=== PATIENT | female | born 1960 | race African-American/Black ===

== ENCOUNTER 2016-12-31 18:25 | Observation (INO) | payer BC, MEDICARE, OTHER ==
[~2016-12-31] VITALS: Ht 162.6 cm; Wt 122.4 kg
[~2016-12-31 18:25] MED LIST: ANTI12.5 PO; ASPI81 PO; CARD4TAB2 PO; DEXA0.5E2 SSP; DIVA250ER PO; FOLI1TAB PO; HYZA100T6 PO; LEXA20TA PO; LORA10TA7 PO; METO25 PO; NEUR800T PO; NEXI40CA PO; OYST500T71 PO; PREG75 PO; SLOW50TA PO; TAB-TAB PO; TIZA4 PO; TRAM50 PO; VIT250TA PO; ZITH250T PO
[2016-12-31 18:33] VITALS: BP 137/85; PULSE 61; RESP 18; TEMP 98.7; O2SAT 96
[2016-12-31 19:05] VITALS: BP 137/83; PULSE 61; RESP 18; TEMP 99.1; O2SAT 97
[2016-12-31] MEDS ORDERED: SODIUM CHLOR 0.9% 1000 ML INJ 1,000 ML IV SCH (19:34)
[2016-12-31] MEDS ORDERED: SODIUM CHLORIDE 0.9% FLUSH 10 ML FLUSH IV FLUSH PRN ×2 (19:45→22:45)
[2016-12-31] MEDS ORDERED: MECLIZINE HCL 25 MG TAB PO ONE (19:45)
[2016-12-31] MEDS ORDERED: ELIT100T2 (19:50)
[2016-12-31] MEDS ORDERED: LEVO75TA3 PO (19:50)
[2016-12-31] MEDS ORDERED: ASPI1TAB69 PO (19:50)
[2016-12-31] MEDS ORDERED: LOSA25TA PO (19:50)
[2016-12-31] MEDS ORDERED: LIPI80TA PO (19:50)
[2016-12-31] MEDS ORDERED: ALLE25TA (19:50)
[2016-12-31] MEDS ORDERED: CYAN1TAB24 (19:50)
[2016-12-31] MEDS ORDERED: FERR1TAB58 PO (19:50)
[2016-12-31] MEDS ORDERED: LEXA20TA PO (19:50)
[2016-12-31] MEDS ORDERED: FOLI800T PO (19:50)
[2016-12-31] MEDS ORDERED: ZANA4CAP PO (19:50)
[2016-12-31] MEDS ORDERED: BIOT1000 PO (19:50)
[2016-12-31] MEDS ORDERED: DEPA250T2 PO (19:50)
[2016-12-31] MEDS ORDERED: CRAN425C2 (19:50)
[2016-12-31] MEDS ORDERED: CLON0.1T PO (19:50)
[2016-12-31] MEDS ORDERED: ULTR50TA5 PO (19:50)
[2016-12-31] MEDS ORDERED: VITA250T3 PO (19:50)
[2016-12-31] MEDS ORDERED: FURO20TA PO (19:50)
[2016-12-31] MEDS ORDERED: MULT1TAB84 PO (19:50)
[2016-12-31] MEDS ORDERED: METO100T PO (19:50)
--- NOTE | 2016-12-31 20:11 | RADHPO ---
EXAM DATE/TIME: 12/31/2016 19:47 [place] COMPARISON: CT BRAIN W/O CONTRAST, October 06, 2012, 22:53. INDICATIONS : Dizziness with right frontal headache for two days. RADIATION DOSE: 64.13 CTDIvol (mGy) MEDICAL HISTORY : Hypertension. SURGICAL HISTORY : Fusion, cervical. ENCOUNTER: Initial ACUITY: 2 days PAIN SCALE: 7/10 LOCATION: Right frontal TECHNIQUE: Multiple contiguous axial images were obtained of the head. Using automated exposure control and adj ustment of the mA and/or kV according to patient size, radiation dose was kept as low as reasonably a chievable to obtain optimal diagnostic quality images. FINDINGS: There is no evidence for intracranial hemorrhage, mass effect, mass lesions, edema, or extra-axial fl uid collections. The visualized bony structures appear intact. The ventricles are normal size for t he patient's age. There are no signs of acute infarction for technique. CONCLUSION: Unremarkable study. Ida Kelly MD on December 31, 2016 at 20:08 Board Certified Radiologist. This report was verified electronically.
[2016-12-31 20:20] VITALS: BP 152/79; PULSE 62; RESP 18; O2SAT 97
--- NOTE | 2016-12-31 20:29 | PD ---
HPI Chief Complaint: Dizziness Time Seen by Provider: 19:20 Travel History International Travel<30 days: No Contact w/Intl Traveler<30days: No Traveled to known affect area: No History of Present Illness HPI 56-year-old female with history of chronic neck and back pain, here for evaluation of dizziness. Patient reports that for the last month or so she has been having intermittent episodes of dizziness. She also has been having intermittent frontal headaches and retro-orbital pain bilaterally. Pain is moderate, not the worst headache of her life, not sudden in onset. States that she went to her neurologist/pain management physician Dr. Michael's office today, and when she got out of the car she states that she almost passed out. She also reports feeling and numbness in her left great toe which has been going on for the last 2 months as well as pain and numbness in her left index finger that has been going on for about 2-3 months as well. She states that she had a MRI of her cervical spine earlier this month. She denies fevers or chills. No abdominal pain, nausea, vomiting, or diarrhea. Dizziness is worse with change in position. PFSH Past Medical History Arthritis: Yes (RHEUMATOID ARTHRITIS) Blood Disorders: No Cancer: No Cardiomyopathy: No High Cholesterol: Yes Chemotherapy: No Diabetes: No Diminished Hearing: No Gastrointestinal Disorders: Yes (COLITIS 2 YRS AGO) GERD: Yes Glaucoma: No Genitourinary: No Headaches: Yes (MIGRAINES) Hepatitis: No Hiatal Hernia: No Hypertension: Yes Medical other: Yes (GERD,ULCERS,N/V,R. ARTHRITIS,ANEMIA,BACK/NECK PROBLEMS) Musculoskeletal: Yes (CHRONIC NECK, ARM PAIN) Neurologic: Yes (headaches) Psychiatric: No Immunizations Current: Yes Sleep Apnea: Yes Thyroid Disease: No Ulcer: Yes (15 YEARS AGO) Tetanus Vaccination: > 5 Years Influenza Vaccination: Yes PNEUMOCCOCAL Vaccine (Year): 2 ?: Not Menopausal: Yes Past Surgical History AICD: No Section: Yes Cholecystectomy: Yes Gynecologic Surgery: Yes (CS 1990) Neurologic Surgery: Yes (CERVICAL FUSION 1996) Pacemaker: No Other Surgery: Yes Social History Alcohol Use: No Tobacco Use: No Substance Use: No Allergies-Medications (Allergen,Severity, Reaction): Coded Allergies: Sulfa (Verified Allergy, Severe, Hives, 12/31/16) Codeine (Verified Allergy, Intermediate, NAUSEA, 12/31/16) Cipro (Verified Adverse Reaction, Unknown, UNKNOWN, 12/31/16) Reported Meds & Prescriptions Reported Meds & Active Scripts Active Reported Multivitamin Adults (Multiple Vitamins W/ Minerals) 1 Tab 1 Tab PO DAILY Magnesium 100 Mg Tab Iron (Ferrous Sulfate) 50 Mg Tab 65 Mg PO DAILY Folic Acid 800 Mcg Tab 800 Mcg PO DAILY Cranberry (Cranberry (Vaccinium Macrocarpon)) 425 Mg Cap Vitamin C (Ascorbic Acid) 250 Mg Tab 250 Mg PO Biotin 1,000 Mcg Tab 1,000 Mg PO B12 (Cyanocobalamin) 1,000 Mcg Tab Allergy (Diphenhydramine HCl) 25 Mg Tab Aspirin 81 Mg Tabdr 81 Mg PO DAILY Zanaflex (Tizanidine HCl) 4 Mg Cap 4 Mg PO QID Ultram (Tramadol HCl) 50 Mg Tab 50 Mg PO Q6H PRN Lexapro (Escitalopram Oxalate) 20 Mg Tab 40 Mg PO DAILY Depakote DR (Divalproex Sodium) 250 Mg Tabdr 250 Mg PO TID Levothyroxine (Levothyroxine Sodium) 75 Mcg Tab 75 Mcg PO DAILY Lipitor (Atorvastatin Calcium) 80 Mg Tab 80 Mg PO HS Metoprolol Tartrate 100 Mg Tab 125 Mg PO BID Losartan (Losartan Potassium) 25 Mg Tab 25 Mg PO HS Furosemide 20 Mg Tab 30 Mg PO DAILY Clonidine (Clonidine HCl) 0.1 Mg Tab 0.1 Mg PO TID Review of Systems Except as stated in HPI: all other systems reviewed are Neg Physical Exam Narrative GENERAL: Well-developed, well-nourished, awake, alert, no acute distress. Ambulated from triage to exam room without difficulty and without assistance. SKIN: Focused skin assessment warm/dry. No rash. HEAD: Atraumatic. Normocephalic. EYES: Pupils equal, round, 3 mm, reactive to light. EOMI. No proptosis. No nystagmus. No scleral icterus. No injection or drainage. ENT: No nasal bleeding or discharge. Mucous membranes pink and moist. Bilateral tympanic membranes and external auditory canals are normal. NECK: Trachea midline. No JVD. No nuchal rigidity. CARDIOVASCULAR: Regular rate and rhythm. Distal pulses brisk and equal bilaterally. RESPIRATORY: No accessory muscle use. Clear to auscultation. Breath sounds equal bilaterally. GASTROINTESTINAL: Abdomen soft, non-tender, nondistended. MUSCULOSKELETAL: No obvious deformities. No clubbing. No cyanosis. No edema. NEUROLOGICAL: Awake and alert. No obvious cranial nerve deficits. Motor grossly within normal limits. Normal speech. Normal muscle strength in all 4 extremities. PSYCHIATRIC: Appropriate mood and affect; insight and judgment normal. Data Data Last Documented VS Vital Signs Date Time Temp Pulse Resp B/P Pulse Ox O2 Delivery O2 Flow Rate FiO2 12/31/16 21:20 98.6 53 17 171/98 99 Room Air Orders Complete Blood Count With Diff (12/31/16 19:34) Comprehensive Metabolic Panel (12/31/16 19:34) Urinalysis - C+S If Indicated (12/31/16 19:34) Iv Access Insert/Monitor (12/31/16 19:34) Ecg Monitoring (12/31/16 19:34) Oximetry (12/31/16 19:34) Sodium Chlor 0.9% 1000 Ml Inj (Ns 1000 M (12/31/16 19:34) Sodium Chloride 0.9% Flush (Ns Flush) (12/31/16 19:45) Electrocardiogram (12/31/16 19:34) Ct Brain W/O Iv Contrast(Rout) (12/31/16 ) W[place]gren Sedimentation Rate (12/31/16 19:34) Meclizine (Antivert) (12/31/16 19:45) Valproic Acid (Depakene) (12/31/16 19:56) Ketorolac Inj (Toradol Inj) (12/31/16 22:00) Labs Laboratory Tests Test 12/31/16 12/31/16 20:25 21:25 White Blood Count 7.3 TH/MM3 Red Blood Count 4.22 MIL/MM3 Hemoglobin 12.4 GM/DL Hematocrit 37.8 % Mean Corpuscular Volume 89.6 FL Mean Corpuscular Hemoglobin 29.4 PG Mean Corpuscular Hemoglobin 32.8 % Concent Red Cell Distribution Width 14.7 % Platelet Count 233 TH/MM3 Mean Platelet Volume 9.3 FL Neutrophils (%) (Auto) 47.2 % Lymphocytes (%) (Auto) 44.8 % Monocytes (%) (Auto) 4.8 % Eosinophils (%) (Auto) 1.7 % Basophils (%) (Auto) 1.5 % Neutrophils # (Auto) 3.5 TH/MM3 Lymphocytes # (Auto) 3.3 TH/MM3 Monocytes # (Auto) 0.3 TH/MM3 Eosinophils # (Auto) 0.1 TH/MM3 Basophils # (Auto) 0.1 TH/MM3 CBC Comment DIFF FINAL Differential Comment Erythrocyte Sedimentation Rate 30 mm/hr Sodium Level 139 MEQ/L Potassium Level 3.7 MEQ/L Chloride Level 97 MEQ/L Carbon Dioxide Level 35.8 MEQ/L Anion Gap 6 MEQ/L Blood Urea Nitrogen 6 MG/DL Creatinine 1.20 MG/DL Estimat Glomerular Filtration 56 ML/MIN Rate Random Glucose 102 MG/DL Calcium Level 9.1 MG/DL Total Bilirubin 0.2 MG/DL Aspartate Amino Transf 22 U/L (AST/SGOT) Alanine Aminotransferase 25 U/L (ALT/SGPT) Alkaline Phosphatase 76 U/L Total Protein 7.9 GM/DL Albumin 3.6 GM/DL Valproic Acid (Depakene) Level 81 MCG/ML Urine Color STRAW Urine Turbidity CLEAR Urine pH 6.0 Urine Specific [place] 1.003 Urine Protein NEG mg/dL Urine Glucose (UA) NEG mg/dL Urine Ketones NEG mg/dL Urine Occult Blood NEG Urine Nitrite NEG Urine Bilirubin NEG Urine Leukocyte Esterase NEG Urine RBC 0-2 /hpf Urine WBC 0-2 /hpf Urine Squamous Epithelial 0-5 /hpf Cells Urine Bacteria NONE /hpf Microscopic Urinalysis Comment CULT NOT INDICATED MDM Medical Decision Making Medical Screen Exam Complete: Yes Emergency Medical Condition: Yes Interpretation(s) EKG: Sinus, rate 78, normal axis, normal intervals, no acute ischemic abnormality. Differential Diagnosis Vertigo, intracranial abnormality, electrolyte abnormality, syncope/near syncope , dysrhythmia, UTI, anemia, temporal arteritis unlikely, Depakote toxicity Narrative Course Chart review shows that the patient had an MRI of her cervical spine done extremely aches on 12/14/16. There is results were reviewed and show significant foraminal encroachment is identified at the left at C4-5, no evidence of spinal stenosis or spinal cord compression, degenerative disc disease with marginal spurring. Initial vital signs show heart rate 63, blood pressure 137/85, pulse ox 96% on room air, oral temp of 98.7F. CBC is unremarkable. CMP is remarkable for BUN 6, creatinine 1.2, GFR 56 which is around her baseline , bicarbonate 35.8, chloride 97, otherwise unremarkable. ESR is 30. Depakote level was 81. UA is within normal limits, not suggestive of UTI. CT head: CONCLUSION: Unremarkable study. Patient was given meclizine as well as some Toradol. Headache has resolved, however the patient still feels dizzy. This is very positional, worse when she goes from sitting to standing. Heart rate is noted to be in the 40s. Upon arrival to the emergency department was in the 60s, and when her EKG was performed and was in the 70s. Given ongoing symptoms with bradycardia, the patient will be admitted for further treatment and evaluation of symptomatic bradycardia. Case discussed with hospitalist Dr. Tompkins who will admit the patient to her service. Patient was made aware of all findings and is happy with plan for overnight observation admission. Diagnosis Primary Impression: Symptomatic bradycardia Additional Impression: Vertigo Admitting Information Admitting Physician Requests: Observation Reid Reed MD Dec 31, 2016 20:28
[2016-12-31 20:45] LABS: AUTOMATED NEUTROPHIL # 3.5 TH/MM3 (1.8-7.7); BASOPHIL # 0.1 TH/MM3 (0-0.2); BASOPHIL % 1.5 % (0.0-2.0); EOSINOPHIL # 0.1 TH/MM3 (0-0.4); EOSINOPHIL % 1.7 % (0.0-4.0); HEMATOCRIT 37.8 % (35.0-46.0); HEMO FLAGS DIFF FINAL; LYMPH % 44.8 % (9.0-44.0); LYMPHOCYTE # 3.3 TH/MM3 (1.0-4.8); MEAN CELL VOLUME 89.6 FL (80.0-100.0); MEAN CORPUSCULAR HEMOGLOBIN 29.4 PG (27.0-34.0); MEAN CORPUSCULAR HGB CONC 32.8 % (32.0-36.0); MONO % 4.8 % (0.0-8.0); NEUT % 47.2 % (16.0-70.0); PLATELET COUNT 233 TH/MM3 (150-450); RED BLOOD COUNT 4.22 MIL/MM3 (4.00-5.30); RED CELL DISTRIBUTION WIDTH 14.7 % (11.6-17.2); WHITE BLOOD COUNT 7.3 TH/MM3 (4.0-11.0)
[2016-12-31 20:55] LABS: CHLORIDE 97 MEQ/L (98-107); POTASSIUM 3.7 MEQ/L (3.5-5.1); SODIUM (NA) 139 MEQ/L (136-145)
[2016-12-31 20:58] LABS: ANION GAP 6 MEQ/L (5-15); BICARBONATE 35.8 MEQ/L (21.0-32.0)
[2016-12-31 20:59] LABS: BLOOD UREA NITROGEN 6 MG/DL (7-18)
[2016-12-31 21:02] LABS: ALT (GPT) 25 U/L (10-53); AST (GOT) 22 U/L (15-37); GLOMERULAR FILTRATION RATE 56 ML/MIN (>89)
[2016-12-31 21:03] LABS: TOTAL BILIRUBIN ADULT 0.2 MG/DL (0.2-1.0)
[2016-12-31 21:04] LABS: ALKALINE PHOSPHATASE 76 U/L (45-117)
[2016-12-31 21:20] VITALS: BP 171/98; PULSE 53; RESP 17; TEMP 98.6; O2SAT 99
[2016-12-31 21:40] LABS: BLOOD, URINE NEG (NEG); GLUCOSE,URINE NEG (NEG); KETONE, URINE NEG (NEG); NITRITE,URINE NEG (NEG)
[2016-12-31 21:48] LABS: URINE COLOR STRAW (YELLW/STRAW)
[2016-12-31 21:49] LABS: COMMENT (UR) CULT NOT INDICATED; CULTURE IF INDICATED CULT NOT INDICATED; RBC, URINE 0-2 /hpf (0-3); SQUAMOUS EPITHELIAL CELL URINE 0-5 /hpf (0-5); WBC, URINE 0-2 /hpf (0-5)
[2016-12-31] MEDS ORDERED: KETOROLAC TROMETHAMINE 30 MG/ML (IVP) VIAL IV PUSH ONE (22:00)
[2016-12-31 22:33] VITALS: BP 208/87; PULSE 48; RESP 18; O2SAT 99
[2016-12-31] MEDS ORDERED: ACETAMINOPHEN 325 MG TAB PO PRN (22:45)
[2016-12-31] MEDS ORDERED: BISACODYL 10 MG SUPP RECTAL PRN (22:45)
[2016-12-31] MEDS ORDERED: ONDANSETRON HCL 4 MG/2 ML VIAL IVP PRN (22:45)
[2016-12-31] MEDS ORDERED: hydrALAZINE HCL 20 MG/ML VIAL IV PUSH ONE (23:45)
[2017-01-01] VITALS (10 sets, daily range): BP systolic 128–206; BP diastolic 81–140; PULSE 60–90; RESP 16–20; TEMP 97.8–98.5; O2SAT 95–100
[2017-01-01] MEDS: SODIUM CHLOR 0.9% 1000 ML INJ 1,000 ML IV SCH ×2 (00:21→08:45)
[2017-01-01] MEDS: MORPHINE SULFATE 4 MG/ML INJ IV PRN ×6 (00:38→22:31)
[2017-01-01 06:42] LABS: AUTOMATED NEUTROPHIL # 3.3 TH/MM3 (1.8-7.7); BASOPHIL % 0.6 % (0.0-2.0); EOSINOPHIL # 0.1 TH/MM3 (0-0.4); EOSINOPHIL % 1.7 % (0.0-4.0); HEMATOCRIT 36.1 % (35.0-46.0); HEMO FLAGS DIFF FINAL; LYMPH % 45.3 % (9.0-44.0); LYMPHOCYTE # 3.2 TH/MM3 (1.0-4.8); MEAN CELL VOLUME 88.9 FL (80.0-100.0); MEAN CORPUSCULAR HEMOGLOBIN 29.1 PG (27.0-34.0); MEAN CORPUSCULAR HGB CONC 32.8 % (32.0-36.0); MONO % 5.8 % (0.0-8.0); NEUT % 46.6 % (16.0-70.0); PLATELET COUNT 236 TH/MM3 (150-450); RED BLOOD COUNT 4.06 MIL/MM3 (4.00-5.30); RED CELL DISTRIBUTION WIDTH 14.9 % (11.6-17.2)
[2017-01-01 06:55] LABS: CHLORIDE 103 MEQ/L (98-107); POTASSIUM 3.2 MEQ/L (3.5-5.1); SODIUM (NA) 143 MEQ/L (136-145)
--- NOTE | 2017-01-01 06:56 | MB ---
cc: SHANA CANO M.D., ALAN PATEL, BHADRESH M.D. DATE OF CONSULTATION 01/01/2017 DATE OF 1960 INDICATIONS I have reviewed outside and office records. The patient is a 56-year-old black woman I am seeing for possible symptomatic bradycardia. HISTORY The patient's history is remarkable for atypical chest pain in the past. She underwent catheterization in 2008 showing normal LV function and coronary arteries. SPECT nuclear and echocardiogram in November of 2010 were normal except for breast attenuation. Holter monitor at that time showed rare premature atrial and ventricular contractions with minimum heart rate 47. The patient notes mild stable dyspnea on exertion. She occasionally gets a squeezing in her left chest lasting a few seconds, but this is not exertional or change. She has no other true cardiac symptoms. The patient has been treated for vertigo in the past. She has had a chronic headache over the last few months behind her left eye. This is intermittent. She notes also while watching TV sometimes when she would look her eyes would crossed. Over the last two days, she has had intermittent imbalance which can occur when she moves her eyes one-way quickly or changes position either with a rolling or standing up and moving. There is no lightheadedness or presyncope, but more a balanced sensation. Again, she has no other cardiac symptoms. PAST MEDICAL HISTORY 1. Hypertension 2. Hyperlipidemia 3. Hypothyroidism 4. Obesity 5. Rheumatoid arthritis 6. Esophageal reflux 7. Colitis 8. Migraine headaches 9. Sleep apnea - not treated. 10. section 11. Cervical fusion with chronic neck and back pain. ALLERGIES SULFA, CODEINE AND CIPRO SOCIAL HISTORY She is and does not smoke or drink. FAMILY HISTORY Unremarkable for premature coronary disease. MEDICATIONS Reviewed REVIEW OF SYSTEMS Only remarkable for the above. EKG shows sinus rhythm and is normal and unchanged. CT SCAN OF THE HEAD Unremarkable LABORATORY FINDINGS CBC normal. BNP only remarkable for creatinine 1.2. Tox screen valproic acid 81. Urinalysis negative. PHYSICAL EXAM Apparently in the emergency room, she had intermittent heart rate to 40, but her vital signs have been stable here heart rate blas except for hypertension which is being treated. She is alert and oriented x3 and overweight. HEAD, EYES, EARS, NOSE, AND THROAT: There are no xanthelasma and oropharyngeal mucosa normal. CHEST: Clear. JVD normal. PMI not felt. CARDIAC: S1-S2 no murmurs or gallops. ABDOMEN: Obese, but benign. EXTREMITIES: Show no cyanosis, clubbing or edema. Pulses carotids without bruits. Radials 2+. Femorals deep, 1+ without bruits. Pedals are 1+. She is not ambulated PROBLEM 1. Dizziness - This clearly appears to be vertiginous or neurologic and noncardiac. There is no lightheadedness, sensation and she has had vertigo before. She also has had mild bradycardia before and I do not think this is symptomatic. 2. Hypertension - Out of control. 3. Hyperlipidemia 4. Hypothyroidism 5. Rheumatoid arthritis 6. Obesity 7. Chronic atypical chest pain RECOMMENDATIONS 1. No further cardiac workup at this point in time. 2. Low cholesterol/salt diet with weight loss. 3. Ideally, the patient's sleep apnea should be treated 4. Further ENT or neurologic workup per the primary service. I will not follow, but be available if needed. All questions were answered. MD VINCENT Baxter/SWATI /6:34 AM /6:44 AM
[2017-01-01] MEDS: LEVOTHYROXINE SODIUM 75 MCG TAB PO SCH (07:58)
[2017-01-01 08:14] LABS: ALKALINE PHOSPHATASE 70 U/L (45-117); ALT (GPT) 19 U/L (10-53); ANION GAP 7 MEQ/L (5-15); AST (GOT) 16 U/L (15-37); BICARBONATE 32.7 MEQ/L (21.0-32.0); BLOOD UREA NITROGEN 6 MG/DL (7-18); GLOMERULAR FILTRATION RATE 70 ML/MIN (>89); TOTAL BILIRUBIN ADULT 0.4 MG/DL (0.2-1.0)
--- NOTE | 2017-01-01 08:29 | HHI.HP ---
HPI Service [facility] Primary Care Physician Prudencio Rivera M.D. Admission Diagnosis symptomatic bradycardia, vertigo Diagnoses: Chief Complaint: Dizziness. Travel History International Travel<30 Days: No Contact w/Intl Traveler <30 Da: No Traveled to Known Affected Are: No History of Present Illness Ms. Jaimes is a pleasant 56-year-old female with a history of hypertension, dizziness, herniated cervical disc who presented to the emergency department on 12/31/2016 for evaluation of dizziness. Patient went to her neurologist on 12/30/2016 and was evaluated for dizziness. Due to severe symptoms patient was advised to come to the emergency department on 12/31/2016. Dizziness is worse with position change. Patient denies any shortness of breath , fever or chills. She occasionally has atypical chest pain. Denies any changes in bowel or bladder habits. During emergency department workup that was a concern for symptomatically bradycardia. Cardiology was consulted. Cardiology recommended no intervention at this point. Review of Systems Except as stated in HPI: all other systems reviewed are Neg Past Family Social History Past Medical History Hypertension Hyperlipidemia Hypothyroidism Herniated disc Past Surgical History Cervical disc fusion 1990 Reported Medications Multivitamin Adults (Multiple Vitamins W/ Minerals) 1 Tab 1 Tab PO DAILY Magnesium 100 Mg Tab Iron (Ferrous Sulfate) 50 Mg Tab 65 Mg PO DAILY Folic Acid 800 Mcg Tab 800 Mcg PO DAILY Cranberry (Cranberry (Vaccinium Macrocarpon)) 425 Mg Cap Vitamin C (Ascorbic Acid) 250 Mg Tab 250 Mg PO Biotin 1,000 Mcg Tab 1,000 Mg PO B12 (Cyanocobalamin) 1,000 Mcg Tab Allergy (Diphenhydramine HCl) 25 Mg Tab Aspirin 81 Mg Tabdr 81 Mg PO DAILY Zanaflex (Tizanidine HCl) 4 Mg Cap 4 Mg PO QID Ultram (Tramadol HCl) 50 Mg Tab 50 Mg PO Q6H PRN Lexapro (Escitalopram Oxalate) 20 Mg Tab 40 Mg PO DAILY Depakote DR (Divalproex Sodium) 250 Mg Tabdr 250 Mg PO TID Levothyroxine (Levothyroxine Sodium) 75 Mcg Tab 75 Mcg PO DAILY Lipitor (Atorvastatin Calcium) 80 Mg Tab 80 Mg PO HS Metoprolol Tartrate 100 Mg Tab 125 Mg PO BID Losartan (Losartan Potassium) 25 Mg Tab 25 Mg PO HS Furosemide 20 Mg Tab 30 Mg PO DAILY Clonidine (Clonidine HCl) 0.1 Mg Tab 0.1 Mg PO TID Allergies: Coded Allergies: Sulfa (Verified Allergy, Severe, Hives, 12/31/16) Codeine (Verified Allergy, Intermediate, NAUSEA, 12/31/16) Cipro (Verified Adverse Reaction, Unknown, UNKNOWN, 12/31/16) Family History Mother - non-Hodgkin's lymphoma Father - Heart disease. Social History Denies using tobacco, alcohol or illicit drugs. Physical Exam Vital Signs Vital Signs Date Time Temp Pulse Resp B/P Pulse Ox O2 Delivery O2 Flow Rate FiO2 01/01/17 04:00 98.1 70 16 128/81 95 01/01/17 01:00 97.9 70 18 183/94 100 01/01/17 00:50 18 01/01/17 00:45 70 18 189/87 100 Room Air 01/01/17 00:41 71 18 196/92 99 Room Air 01/01/17 00:34 66 188/90 01/01/17 00:21 60 206/81 12/31/16 22:52 18 12/31/16 22:33 48 18 99 Room Air 12/31/16 22:33 48 18 208/87 99 Room Air 12/31/16 21:20 98.6 53 17 171/98 99 Room Air 12/31/16 21:00 Room Air 12/31/16 20:20 62 18 152/79 97 Room Air 12/31/16 19:05 99.1 61 18 137/83 97 Room Air 12/31/16 18:33 98.7 61 18 137/85 96 Physical Exam GENERAL: This is a well-nourished, well-developed patient, in no apparent distress. SKIN: No rashes, ecchymoses or lesions. Warm and dry. HEAD: Atraumatic. Normocephalic. No temporal or scalp tenderness. EYES: Pupils equal round and reactive. No injection or drainage. ENT: Nose without bleeding, purulent drainage or septal hematoma. Airway patent. NECK: Trachea midline. No lymphadenopathy. Supple, nontender, no meningeal signs. CARDIOVASCULAR: Regular rate and rhythm without murmurs, gallops, or rubs. No JVD. RESPIRATORY: Clear to auscultation. Breath sounds equal bilaterally. No wheezes , rales, or rhonchi. GASTROINTESTINAL: Abdomen soft, non-tender, nondistended. No guarding. MUSCULOSKELETAL: Extremities without clubbing, cyanosis, or edema. NEUROLOGICAL: Awake and alert. Cranial nerves II through XII intact. No focal neurological deficits. Normal speech. Laboratory Laboratory Tests Test 12/31/16 12/31/16 01/01/17 20:25 21:25 06:20 White Blood Count 7.3 7.0 Red Blood Count 4.22 4.06 Hemoglobin 12.4 11.8 Hematocrit 37.8 36.1 Mean Corpuscular Volume 89.6 88.9 Mean Corpuscular Hemoglobin 29.4 29.1 Mean Corpuscular Hemoglobin 32.8 32.8 Concent Red Cell Distribution Width 14.7 14.9 Platelet Count 233 236 Mean Platelet Volume 9.3 9.3 Neutrophils (%) (Auto) 47.2 46.6 Lymphocytes (%) (Auto) 44.8 45.3 Monocytes (%) (Auto) 4.8 5.8 Eosinophils (%) (Auto) 1.7 1.7 Basophils (%) (Auto) 1.5 0.6 Neutrophils # (Auto) 3.5 3.3 Lymphocytes # (Auto) 3.3 3.2 Monocytes # (Auto) 0.3 0.4 Eosinophils # (Auto) 0.1 0.1 Basophils # (Auto) 0.1 0.0 CBC Comment DIFF FINAL DIFF FINAL Differential Comment Erythrocyte Sedimentation Rate 30 Sodium Level 139 143 Potassium Level 3.7 3.2 Chloride Level 97 103 Carbon Dioxide Level 35.8 32.7 Anion Gap 6 7 Blood Urea Nitrogen 6 6 Creatinine 1.20 0.99 Estimat Glomerular Filtration 56 70 Rate Random Glucose 102 90 Calcium Level 9.1 8.2 Total Bilirubin 0.2 0.4 Aspartate Amino Transf 22 16 (AST/SGOT) Alanine Aminotransferase 25 19 (ALT/SGPT) Alkaline Phosphatase 76 70 Total Protein 7.9 6.9 Albumin 3.6 3.2 Valproic Acid (Depakene) Level 81 Urine Color STRAW Urine Turbidity CLEAR Urine pH 6.0 Urine Specific [place] 1.003 Urine Protein NEG Urine Glucose (UA) NEG Urine Ketones NEG Urine Occult Blood NEG Urine Nitrite NEG Urine Bilirubin NEG Urine Leukocyte Esterase NEG Urine RBC 0-2 Urine WBC 0-2 Urine Squamous Epithelial 0-5 Cells Urine Bacteria NONE Microscopic Urinalysis Comment CULT NOT INDICATED Troponin I LESS THAN 0.02 Result Diagram: 01/01/17 0620 01/01/17 0620 Imaging Last Impressions Head CT 12/31/16 0000 Signed Impressions: Service Date/Time: , December 31, 2016 19:47 - CONCLUSION: Unremarkable study. K. Mike Kelly MD Assessment and Plan Problem List: (1) HTN (hypertension) ICD Code: I10 Status: Acute (2) Dizziness ICD Code: R42 Status: Acute Assessment and Plan Ms. Jaimes is a pleasant 56-year-old female with a history of hypertension, herniated cervical disc who presented to the emergency on 2016 for an evaluation of dizziness. Patient is followed by an outpatient neurologist who recommended her to come to the ER. Cardiology followed patient for possible symptomatic bradycardia. Cardiology recommended no further intervention at this point. - Dizziness - possibly vertigo. Meclizine was given in the ED. - Accelerated hypertension - Patient has a history of angioedema on lisinopril. However she was taking losartan at home. - No further lisinopril and losartan. - Patient also reports ankle edema when she used amlodipine. - Patient was taking clonidine 0.1 mg 3 times a day. - We'll try to discontinue clonidine if her blood pressure with other medications is controlled. - Start hydrochlorothiazide 25 mg daily and hydralazine 25 mg every 8 hours. - Hyperlipidemia - continue atorvastatin 80 mg daily at bedtime. - Hypothyroidism - continue levothyroxine 75 g daily. - Hypokalemia - potassium 3.2. We'll replace potassium with oral potassium. Full code. SCDs. Brandy Callahan DO Jan 01, 2017 08:29
[2017-01-01] MEDS ORDERED: hydrALAZINE HCL 25 MG TAB PO PRN (08:45)
[2017-01-01] MEDS ORDERED: amLODIPine BESYLATE 5 MG TAB PO SCH (09:00)
[2017-01-01] MEDS: DIVALPROEX SODIUM DELAYED RELEASE 250 MG TAB PO SCH ×3 (09:00→16:53)
[2017-01-01] MEDS: SODIUM CHLORIDE 0.9% FLUSH 10 ML FLUSH IV FLUSH SCH ×2 (09:00→20:08)
[2017-01-01] MEDS ORDERED: LISINOPRIL 10 MG TAB PO SCH (09:00)
[2017-01-01] MEDS: ESCITALOPRAM OXALATE 20 MG TAB PO SCH (09:09)
[2017-01-01] MEDS: ASPIRIN EC 81 MG TABEC PO SCH (09:10)
[2017-01-01] MEDS ORDERED: HYDROCHLOROTHIAZIDE 25 MG TAB PO ONE (10:00)
[2017-01-01] MEDS: POTASSIUM CHLORIDE 20 MEQ CONTROLLED RELEASE TAB PO SCH ×2 (12:36→20:15)
--- NOTE | 2017-01-01 13:21 | EC ---
Study Study Date:01/01/2017 STUDY CONCLUSIONS SUMMARY LEFT VENTRICLE: The cavity size was normal. Systolic function was normal. The estimated ejection fraction was in the range of 65% to 70%. Wall motion was normal; there were no regional wall motion abnormalities. Doppler parameters are consistent with abnormal left ventricular relaxation (grade 1 diastolic dysfunction). If LV function is below 40, please consider prescribing an ACEI or ARB or document rationale for non-use. PROCEDURE DATA STUDY STATUS: Elective. Procedure: Transthoracic echocardiography. Image quality was good. Scanning was performed from the parasternal, apical, and subcostal acoustic windows. Study completion: The patient tolerated the procedure well. Transthoracic echocardiography. M-mode, complete 2D, complete spectral Doppler, and color Doppler. Height: Height: 64in. Weight: Weight: 266.4lb. Body mass index: BMI: 45.8kg/m^2. Body surface area: BSA: 2.21m^2. Patient status: Inpatient. CARDIAC ANATOMY LEFT VENTRICLE: The cavity size was normal. Systolic function was normal. The estimated ejection fraction was in the range of 65% to 70%. Wall motion was normal; there were no regional wall motion abnormalities. Doppler parameters are consistent with abnormal left ventricular relaxation (grade 1 diastolic dysfunction). AORTIC VALVE: The valve appears to be grossly normal. Doppler: There was no stenosis. No significant regurgitation. Valve area: 1.42cm^2(VTI). Indexed valve area: 0.64cm^2/m^2 (VTI). Valve area: 1.42cm^2 (Vmax). Indexed valve area: 0.64cm^2/m^2 (Vmax). Mean gradient: 8mm Hg (S). Peak gradient: 15mm Hg (S). MITRAL VALVE: The valve appears to be grossly normal. Doppler: There was no evidence for stenosis. No significant regurgitation. Peak gradient: 3mm Hg (D). LEFT ATRIUM: The atrium was normal in size. RIGHT VENTRICLE: The cavity size was normal. Systolic function was normal. PULMONIC VALVE: Not well visualized. Doppler: There was no evidence for stenosis. Trace regurgitation. TRICUSPID VALVE: The valve appears to be grossly normal. Doppler: There was no evidence for stenosis. Trace regurgitation. PERICARDIUM: There was no pericardial effusion. Patient weight: 266.4lb _Ejection fraction:_ 65-75% _Fractional shortening:_ 32% up to 5Kg 5-11.5Kg 11.6-22.9Kg 23-45Kg 45-57Kg Aortic Root 7-13 <17 13-22 17-27 17-27 LA diam 6-13 <23 24-38 33-47 37-40 RVID 10-17 7-15 7-15 7-18 8-17 LVIDd 12-22 <32 24-38 33-47 37-40 LVPW 2-4 3-6 5-7 6-8 7-8 IVS 2-4 3-6 5-7 6-8 7-8 BASIC MEASUREMENTS ADULT NORMAL Left ventricle LV internal dimension, ED, chordal 48.4 mm 43-52 level, PLAX LV internal dimension, ES, chordal 33 mm 23-38 level, PLAX Fractional shortening, chordal level, 32 % >29 PLAX LV posterior wall thickness, ED 10 mm IVS/LVPW ratio, ED 1 <1.3 Ventricular septum Septal thickness, ED 10 mm Aortic valve Leaflet separation 18 mm 15-26 Aorta Root diameter, ED 27 mm Left atrium Anterior-posterior dimension 29 mm Anterior-posterior dimension index 1.31 cm/m^2 <2.2 BASIC MEASUREMENTS ADULT NORMAL Aortic valve Leaflet separation 18 mm 15-26 DOPPLER MEASUREMENTS ADULT NORMAL Aortic valve Peak velocity, S 192 cm/s Mean velocity, S 131 cm/s VTI, S 35.4 cm Mean gradient, S 8 mm Hg Peak gradient, S 15 mm Hg Valve area, VTI 1.42 cm^2 Valve area index, VTI 0.64 cm^2/m^2 Valve area, Vmax 1.42 cm^2 Valve area index, Vmax 0.64 cm^2/m^2 Mitral valve Peak E-wave velocity 87.4 cm/s Peak A-wave velocity 111 cm/s Deceleration time *331 ms 150-230 Peak gradient, D 3 mm Hg Peak E/A ratio 0.8 Pulmonic valve Peak velocity, S 66.2 cm/s LEGEND: Mean values are shown as u=mean value. Asterisk (*) rivas values outside specified normal range. Prepared and signed by Gary Gonzalez [id number]
[2017-01-01] MEDS: hydrALAZINE HCL 25 MG TAB PO SCH ×2 (14:24→20:07)
[2017-01-01] MEDS ORDERED: WALKER WHEELS/F1 MIS (14:44)
[2017-01-01] MEDS ORDERED: cloNIDine HCL 0.1 MG TAB PO PRN (19:15)
--- NOTE | 2017-01-01 19:36 | EKG ---
Date Performed: 12/31/2016 Time Performed: 19:51:08 PTAGE: 56 years EKG: Sinus rhythm Compared to prior tracing no significant change Normal ECG PREVIOUS TRACING : 02/20/2009 06.56 DOCTOR: Arjun Dixon Interpretating Date/Time 01/01/2017 19:33:22
[2017-01-01] MEDS ORDERED: cloNIDine HCL 0.2 MG TAB PO ONE (20:00)
[2017-01-01] MEDS ORDERED: diphenhydrAMINE HCL 25 MG CAP PO ONE (20:45)
[2017-01-01] MEDS ORDERED: ATORVASTATIN 40 MG TAB PO SCH (21:00)
[2017-01-02] VITALS: BP 175/94; PULSE 86; RESP 20; TEMP 98.1; O2SAT 96
[2017-01-02 04:00] VITALS: BP 155/86; PULSE 82; RESP 20; TEMP 97.3; O2SAT 96
[2017-01-02] MEDS: hydrALAZINE HCL 25 MG TAB PO SCH (05:15)
[2017-01-02] MEDS: LEVOTHYROXINE SODIUM 75 MCG TAB PO SCH (05:15)
[2017-01-02] MEDS: POTASSIUM CHLORIDE 20 MEQ CONTROLLED RELEASE TAB PO SCH (05:15)
[2017-01-02] MEDS: MORPHINE SULFATE 4 MG/ML INJ IV PRN (06:01)
[2017-01-02 08:00] VITALS: BP 143/83; PULSE 79; RESP 20; TEMP 96.9; O2SAT 94
[2017-01-02] MEDS ORDERED: PRAV40TA2 PO (08:41)
[2017-01-02] MEDS ORDERED: HYDR25TA35 PO (08:41)
[2017-01-02] MEDS ORDERED: POTA20TA5 PO ×2 (08:41→23:15)
[2017-01-02] MEDS ORDERED: HYDR25TA5 PO (08:41)
--- NOTE | 2017-01-02 08:43 | HHI.PR ---
Subjective Remarks Follow up for dizziness, accelerated HTN. Patient is doing well. No chest pain, SOB, fever, chills. Objective Vitals Vital Signs Date Time Temp Pulse Resp B/P Pulse Ox O2 Delivery O2 Flow Rate FiO2 01/02/17 06:06 16 01/02/17 04:00 97.3 82 20 155/86 96 01/02/17 00:00 98.1 86 20 175/94 96 01/01/17 20:00 90 01/01/17 20:00 98.5 90 20 169/81 98 01/01/17 16:00 97.8 89 18 200/140 01/01/17 12:00 98.1 78 20 170/100 96 I/O 01/01/17 01/01/17 01/01/17 01/02/17 01/02/17 01/02/17 07:00 15:00 23:00 07:00 15:00 23:00 Intake Total 220 ml 750 ml 800 ml 720 ml Balance 220 ml 750 ml 800 ml 720 ml Intake Oral 220 ml 750 ml 720 ml IV Total 800 ml # Voids 1 4 2 6 # Bowel Movements 0 0 0 Result Diagram: 01/01/17 0620 01/01/17 0620 Imaging Last Impressions Head CT 12/31/16 0000 Signed Impressions: Service Date/Time: December 19:47 - CONCLUSION: Unremarkable study. Ida Kelly MD Objective Remarks GENERAL: AOX3, NAD. SKIN: Warm and dry. HEAD: Normocephalic. EYES: No scleral icterus. No injection or drainage. NECK: Supple, trachea midline. No JVD or lymphadenopathy. CARDIOVASCULAR: Regular rate and rhythm without murmurs, gallops, or rubs. RESPIRATORY: Breath sounds equal bilaterally. No accessory muscle use. GASTROINTESTINAL: Abdomen soft, non-tender, nondistended. MUSCULOSKELETAL: No cyanosis, or edema. BACK: Nontender without obvious deformity. No CVA tenderness. Procedures None. A/P Problem List: (1) HTN (hypertension) ICD Code: I10 Status: Acute (2) Dizziness ICD Code: R42 Status: Acute Assessment and Plan Ms. Jaimes is a pleasant 56-year-old female with a history of hypertension, herniated cervical disc who presented to the emergency on 2016 for an evaluation of dizziness. Patient is followed by an outpatient neurologist who recommended her to come to the ER. Cardiology followed patient for possible symptomatic bradycardia. Cardiology recommended no further intervention at this point. - Dizziness - possibly vertigo. Meclizine was given in the ED. - Accelerated hypertension - Patient has a history of angioedema on lisinopril. However she was taking losartan at home. - No further lisinopril and losartan. - Patient also reports ankle edema when she used amlodipine. - Patient was taking clonidine 0.1 mg 3 times a day. Continue this regimen. - Advised patient to work with her PCP to wean herself off Clonidine. - Continue hydrochlorothiazide 25 mg daily and hydralazine 25 mg every 8 hours. - Hyperlipidemia - Patient reports myopathy. We will switch Lipitor to Pravastatin 40mg Qday. - Hypothyroidism - continue levothyroxine 75 g daily. - Hypokalemia - potassium 3.2. We'll replace potassium with oral potassium. Full code. SCDs. Discharge patient to home Condition on discharge: Improved Heart healthy Diet as tolerated Ad Evangelina activity Rx written: - Hydralazine 25mg Q8hrs - HCTZ 25mg Qday - KCL 20meq Qday X 5 days - Pravastatin 40mg Qday. Follow-up with primary care physician within one week. Brandy Callahan DO Jan 02, 2017 08:43
[2017-01-02] MEDS: ESCITALOPRAM OXALATE 20 MG TAB PO SCH (08:44)
[2017-01-02] MEDS: ASPIRIN EC 81 MG TABEC PO SCH (08:45)
[2017-01-02] MEDS: SODIUM CHLORIDE 0.9% FLUSH 10 ML FLUSH IV FLUSH SCH (08:45)
[2017-01-02] MEDS: DIVALPROEX SODIUM DELAYED RELEASE 250 MG TAB PO SCH (08:48)
[2017-01-02] MEDS ORDERED: HYDROCHLOROTHIAZIDE 25 MG TAB PO SCH (09:00)
== END 2017-01-02 10:26 | disposition home or self-care (01) ==
LOC: PHED 18:25 → PHEDA 22:27 → PH3B 01-01 01:03
PROVIDERS: ADMIT Hospitalist; ATTEND Hospitalist
DX: R42 Dizziness and giddiness (principal); I10 Essential (primary) hypertension; R51 Headache; E78.5 Hyperlipidemia, unspecified; E03.9 Hypothyroidism, unspecified; E87.6 Hypokalemia; E78.00 Pure hypercholesterolemia, unspecified; K21.9 Gastro-esophageal reflux disease without esophagitis; M06.9 Rheumatoid arthritis, unspecified; G47.30 Sleep apnea, unspecified; Z79.899 Other long term (current) drug therapy
CPT/HCPCS: 70450; 80053; 80164; 81001; 84484; 85025; 85652; 93005; 93306; 96361; 96374; 97162; 99285; G0378; G8987; G8988; J0360; J1885; J2270; J2405; J7030

== ENCOUNTER 2018-04-15 18:18 | Observation (INO) ==
[2018-04-15] MEDS ORDERED: Sod Chloride 0.9% Inj 1,000 ML IV.CONT SCH (19:00)
--- NOTE | 2018-04-15 19:09 | ED ---
HPI General Chief Complaint: Dizziness Stated Complaint: Dizziness/Weakness/Pain on Lft Side Of Head Time Seen by Provider: 04/15/18 18:36 Source: patient Mode of arrival: ambulatory Limitations: no limitations History of Present Illness HPI Narrative: The patient is a 57-year-old -[place] female who presents to the emergency department for dizziness. The patient states she developed dizziness earlier this morning approximately 630 to 6:45 AM. The patient describes her dizziness as feeling off balance, lightheaded, and " things are moving ". The patient also thought she had difficulty with her speech, called several family members who stated her speech felt normal. She denies any weakness or numbness to the upper or lower extremities. The patient states she had a similar episode in November but also had right upper extremity weakness at that time. The patient saw her neurologist, Dr. Rivera, on an outpatient basis and was diagnosed with a TIA after she had an MRI/MRA. The patient states right upper extremity weakness at that time resolved. However, she has had intermittent dizziness as well as occasional frontal headaches since the original stroke. The patient feels like her speech is slightly off and feels dizzy, whether at rest or with activity or movement. She also complains of occasional double vision and feels that there are 2 lines, when there should only be one line and looking at the corner of her room. The patient does have a history of hypertension and hyperlipidemia with previous TIA. The patient states she took her aspirin this morning. MD complaint: dizziness Onset (ago): hour(s) Timing: gradual onset Description: sense of movement, lightheadedness and off-balance History of similar episodes: Yes History of trauma: No (TIA) Severity: similar to previous episodes Relieving factors: nothing Exacerbating factors: nothing Associated symptoms: vision changes Related Data Home Medications Medication Instructions Recorded Confirmed aspirin 81 mg PO DAILY 04/15/18 04/15/18 atorvastatin 80 mg PO DAILY 04/15/18 04/15/18 clonidine HCl 0.1 mg PO TID 04/15/18 04/15/18 divalproex [Depakote] 250 mg PO TID 04/15/18 04/15/18 furosemide 20 mg PO DAILY 04/15/18 04/15/18 levothyroxine 75 mcg PO DAILY 04/15/18 04/15/18 losartan 50 mg PO DAILY 04/15/18 04/15/18 metoprolol tartrate 25 mg PO BID 04/15/18 04/15/18 omeprazole 20 mg PO DAILY 04/15/18 04/15/18 pregabalin [Lyrica] 200 mg PO TID 04/15/18 04/15/18 tizanidine [Zanaflex] 4 mg PO TID 04/15/18 04/15/18 topiramate [Topamax] 50 mg PO BID 04/15/18 04/15/18 tramadol [Ultram] 50 mg PO QID PRN 04/15/18 04/15/18 Allergies Allergy/AdvReac Type Severity Reaction Status Date / Time Sulfa (Sulfonamide Allergy Severe Hives Verified 04/15/18 18:32 Antibiotics) lisinopril Allergy Edema, Verified 04/15/18 19:01 Localized codeine AdvReac Intermediate NAUSEA Verified 04/15/18 18:32 meperidine [From Demerol] AdvReac Intermediate Dizziness Verified 04/15/18 18:33 ciprofloxacin AdvReac Unknown UNKNOWN Verified 04/15/18 18:32 hydrocodone AdvReac Nausea Verified 04/15/18 18:33 Review of Systems Except as stated in HPI: all other systems reviewed are negative [facility] Medical History Medical History High cholesterol (Acute) Hypertension (Acute) Leg pain (Acute) Migraines (Acute) Thyroid disease (Acute) Social History Social History Substance History: No History of Abuse Second Hand Smoke Exposure: No Smoking Status: Never smoker How Often Do You Have a Drink Containing Alcohol: Monthly or less Recent Travel in [facility] within the Last 8 Weeks: No Recent Out of Country Travel within the Last 8 Weeks: No Exam Narrative Exam Narrative: GENERAL: Awake, alert, pleasant 57-year-old female appears her stated age and is in no acute respiratory distress. SKIN: Focused skin assessment warm/dry. HEAD: Atraumatic. Normocephalic. EYES: Pupils equal and round. Pupils are 3 mm bilateral and reactive. EOMs are intact. Patient is able to see fingers at a distance of 2 feet without difficulty. Mild pallor of the lower lids bilaterally. ENT: No nasal bleeding or discharge. Mucous membranes pink and moist. NECK: Trachea midline. No JVD. CARDIOVASCULAR: Regular rate and rhythm. No murmur appreciated. RESPIRATORY: No accessory muscle use. Clear to auscultation. Breath sounds equal bilaterally. GASTROINTESTINAL: Abdomen soft, non-tender, nondistended. MUSCULOSKELETAL: No obvious deformities. No clubbing. No cyanosis. No edema. NEUROLOGICAL: Awake and alert. Patient is alert and oriented 4. Follows commands without difficulty. Questionable change in the nasolabial fold on the left when compared to the right, questionable slight left facial droop with smile. No obvious dysarthria. No drift of the upper or lower extremities. Finger to nose is normal. Heel to rivas is normal. Subjective decreased sensation to left face, left arm, and left leg. PSYCHIATRIC: Appropriate mood and affect; insight and judgment normal. Course Reevaluation(s) Reevaluation #1: The patient was reevaluated, still has mild left facial droop and decreased sensation to left aspect of her body. It appears the patient has had a TIA/CVA. Therefore, the on-call medical service was paged for 23 hour observation. I discussed the patient with Dr. Tompkins who agrees with 23 hour observation. Time: 20:09 Initial Documented Vital Signs Temperature 97.8 F 04/15/18 18:21 Pulse Rate 71 04/15/18 18:21 Respiratory Rate 16 04/15/18 18:21 Blood Pressure 144/82 H 04/15/18 18:21 Pulse Oximetry 97 04/15/18 18:21 Last Documented Vital Signs Temperature 97.8 F 04/15/18 18:21 Pulse Rate 70 04/15/18 19:30 Respiratory Rate 20 04/15/18 19:30 Blood Pressure 135/80 04/15/18 19:30 Pulse Oximetry 97 04/15/18 19:30 Medical Decision Making [facility] Narrative Medical decision making narrative: IV was established, labs are drawn and sent, and the patient was placed on cardiac telemetry monitoring and continuous pulse oximetry monitoring. CT of the brain was obtained. EKG was ordered and interpreted. CT the brain was negative. Creatinine is mildly elevated at 1.20. Hemoglobin is unremarkable. Troponin and CPK are normal. The patient was reevaluated at 8:05 PM. The patient still has mild asymmetry to the left face with smiling and diminished sensation to soft touch on the left, the patient now states her speech sounds normal. A family member was in the room who definitely states the patient's speech sounds normal, or, does note that the smile is asymmetric and not normal. It appears the patient has had a TIA/ CVA. Patient may benefit from MRI, ultrasound of the carotids, echocardiogram, neurology consultation. The patient's primary physician is Dr. Syed Prieto. [facility] Differential Diagnosis Differential Diagnosis: Differential diagnosis includes TIA, CVA, complicated migraine, subdural hemorrhage, subarachnoid hemorrhage, intracranial hemorrhage , multiple sclerosis. Lab Data Lab results reviewed: Yes I reviewed the patient's lab results. Lab results narrative: Creatinine is mildly elevated at 1.20. CPK and troponin are unremarkable. Result diagrams: 04/15/18 19:20 04/15/18 19:20 Lab Results 04/15/18 04/15/18 04/15/18 Range/Units 19:20 19:20 19:20 CBC w Diff Auto diff final WBC 8.7 (4.0-11.0) th/mm3 RBC 4.08 (4.00-5.30) mil/mm3 Hgb 12.1 (11.6-15.3) gm/dL Hct 36.8 (35.0-46.0) % MCV 90.2 (80.0-100.0) fL MCH 29.6 (27.0-34.0) pg MCHC 32.9 (32.0-36.0) % RDW 15.0 (11.6-17.2) % Plt Count 200 (150-450) th/mm3 MPV 9.6 (7.0-11.0) fL Neut % (Auto) 42.4 (16.0-70.0) % Lymph % (Auto) 47.9 H (9.0-44.0) % [place] % (Auto) 4.3 (0.0-8.0) % Eos % (Auto) 2.3 (0.0-4.0) % Baso % (Auto) 3.1 H (0.0-2.0) % Neut # (Auto) 3.7 (1.8-7.7) th/mm3 Lymph # (Auto) 4.1 (1.0-4.8) th/mm3 [place] # (Auto) 0.4 (0.0-0.9) th/mm3 Eos # (Auto) 0.2 (0.0-0.4) th/mm3 Baso # (Auto) 0.3 H (0.0-0.2) th/mm3 WBC Differential . Differential Comment . PT 9.5 L (9.8-11.6) sec INR 0.9 Ratio APTT 25.2 (24.3-30.1) sec Sodium 142 (136-145) meq/L Potassium 3.6 (3.5-5.1) meq/L Chloride 109 H (98-107) meq/L Carbon Dioxide 26.0 (21.0-32.0) meq/L Anion Gap 7 (5-15) meq/L BUN 10 (7-18) mg/dL Creatinine 1.20 H (0.50-1.00) mg/dL Estimated GFR 56 L (>89) mL/min POC Glucose (68-110) mg/dl Random Glucose 95 (74-106) mg/dL Calcium 8.2 L (8.5-10.1) mg/dL Total Bilirubin 0.1 L (0.2-1.0) mg/dL AST 17 (15-37) U/L ALT 23 (10-53) U/L Alkaline Phosphatase 99 (45-117) U/L Total Creatine Kinase 165 (26-192) U/L CK-MB (CK-2) 1.6 (0.5-3.6) ng/mL Troponin I Less than 0.02 L (0.02-0.05) ng/mL Total Protein 7.2 (6.4-8.2) g/dL Albumin 3.3 L (3.4-5.0) g/dL 04/15/18 Range/Units 19:23 CBC w Diff WBC (4.0-11.0) th/mm3 RBC (4.00-5.30) mil/mm3 Hgb (11.6-15.3) gm/dL Hct (35.0-46.0) % MCV (80.0-100.0) fL MCH (27.0-34.0) pg MCHC (32.0-36.0) % RDW (11.6-17.2) % Plt Count (150-450) th/mm3 MPV (7.0-11.0) fL Neut % (Auto) (16.0-70.0) % Lymph % (Auto) (9.0-44.0) % [place] % (Auto) (0.0-8.0) % Eos % (Auto) (0.0-4.0) % Baso % (Auto) (0.0-2.0) % Neut # (Auto) (1.8-7.7) th/mm3 Lymph # (Auto) (1.0-4.8) th/mm3 [place] # (Auto) (0.0-0.9) th/mm3 Eos # (Auto) (0.0-0.4) th/mm3 Baso # (Auto) (0.0-0.2) th/mm3 WBC Differential Differential Comment PT (9.8-11.6) sec INR Ratio APTT (24.3-30.1) sec Sodium (136-145) meq/L Potassium (3.5-5.1) meq/L Chloride (98-107) meq/L Carbon Dioxide (21.0-32.0) meq/L Anion Gap (5-15) meq/L BUN (7-18) mg/dL Creatinine (0.50-1.00) mg/dL Estimated GFR (>89) mL/min POC Glucose 96 (68-110) mg/dl Random Glucose (74-106) mg/dL Calcium (8.5-10.1) mg/dL Total Bilirubin (0.2-1.0) mg/dL AST (15-37) U/L ALT (10-53) U/L Alkaline Phosphatase (45-117) U/L Total Creatine Kinase (26-192) U/L CK-MB (CK-2) (0.5-3.6) ng/mL Troponin I (0.02-0.05) ng/mL Total Protein (6.4-8.2) g/dL Albumin (3.4-5.0) g/dL Imaging Data Radiologist's impression: Head CT 04/15/18 18:50 CONCLUSION: 1. No acute intracranial abnormalities. . ECG Data EKG Prior to Arrival: No Attestation: I personally reviewed and interpreted this ECG as follows: Interpretation: EKG reveals normal sinus rhythm with a rate of 68. Q-wave noted in lead III and aVF. Inverted T-wave in lead III. Flattened T waves noted in V3 through V6. Discharge Plan Discharge Disposition Patient Disposition: 30 Still Patient Discharge Condition Condition: Stable Discharge Details Diagnosis: Transient ischemic attack (TIA) Physicians Team ED Provider: Ranjit Keller Primary Care Provider: Loy Prieto Rxs /Orders / Referrals /Forms Prescriptions: No Action losartan 50 mg Tablet 50 mg PO DAILY RF: 0 atorvastatin 80 mg Tablet 80 mg PO DAILY RF: 0 clonidine HCl 0.1 mg Tablet 0.1 mg PO TID RF: 0 divalproex [Depakote] 250 mg Tablet,Delayed Release (Dr/Ec) 250 mg PO TID RF: 0 tramadol [Ultram] 50 mg Tablet 50 mg PO QID PRN (Reason: Acute Pain) RF: 0 levothyroxine 75 mcg Tablet 75 mcg PO DAILY RF: 0 furosemide 20 mg Tablet 20 mg PO DAILY RF: 0 metoprolol tartrate 25 mg Tablet 25 mg PO BID RF: 0 pregabalin [Lyrica] 200 mg Capsule 200 mg PO TID RF: 0 omeprazole 20 mg Tablet,Delayed Release (Dr/Ec) 20 mg PO DAILY RF: 0 tizanidine [Zanaflex] 4 mg Tablet 4 mg PO TID RF: 0 topiramate [Topamax] 25 mg Capsule, Sprinkle 50 mg PO BID RF: 0 aspirin 81 mg Tablet,Chewable 81 mg PO DAILY RF: 0 Status ED Status: Pending Admission
[2018-04-15 19:35] LABS: Baso # (Auto) 0.3 th/mm3 (0.0-0.2); Baso % (Auto) 3.1 % (0.0-2.0); Eos # (Auto) 0.2 th/mm3 (0.0-0.4); Eos % (Auto) 2.3 % (0.0-4.0); Hematocrit 36.8 % (35.0-46.0); Hemoglobin 12.1 gm/dL (11.6-15.3); Lymph # (Auto) 4.1 th/mm3 (1.0-4.8); Lymph % (Auto) 47.9 % (9.0-44.0); Mean Corpuscular HGB Conc 32.9 % (32.0-36.0); Mean Corpuscular Hemoglobin 29.6 pg (27.0-34.0); Mean Corpuscular Volume 90.2 fL (80.0-100.0); Mean Platelet Volume 9.6 fL (7.0-11.0); Mono # (Auto) 0.4 th/mm3 (0.0-0.9); Mono % (Auto) 4.3 % (0.0-8.0); Neut # (Auto) 3.7 th/mm3 (1.8-7.7); Neut % (Auto) 42.4 % (16.0-70.0); Platelet Count 200 th/mm3 (150-450); Red Blood Count 4.08 mil/mm3 (4.00-5.30); White Blood Count 8.7 th/mm3 (4.0-11.0)
[2018-04-15 19:42] LABS: Chloride 109 meq/L (98-107); Potassium 3.6 meq/L (3.5-5.1); Sodium 142 meq/L (136-145)
--- NOTE | 2018-04-15 19:42 | CT ---
EXAM DATE: 04/15/2018 7:40 PM EDT AGE/SEX: 57 years / Female INDICATIONS: Left head pain, dizziness, double vision and weakness. Evaluate for trans ischemic zoila ck. CLINICAL DATA: This is the patient's initial encounter. Patient reports that signs and symptoms have been present for 1 day and indicates a pain score of 4/10. MEDICAL/SURGICAL HISTORY: None. None. RADIATION DOSE: 59.08 CTDI (mGy) COMPARISON: No prior exams available for comparison. TECHNIQUE: CT of the head without contrast. Using automated exposure control and adjustment of the mA and/or kV according to patient size, radiation dose was kept as low as reasonably achievable to ob tain optimal diagnostic quality images. DICOM format image data is available electronically for revi ew and comparison. FINDINGS: Cerebrum: The ventricles are normal for age. No evidence of midline shift, mass lesion, hemorrhage or acute infarction. No extraaxial fluid collections are seen. Posterior Fossa: The cerebellum and brainstem are intact. The 4th ventricle is midline. The cerebe llopontine angle is unremarkable. Extracranial: The visualized portion of the orbits is intact. Skull: The calvaria is intact. No evidence of skull fracture. CONCLUSION: 1. No acute intracranial abnormalities. . Electronically signed by: Saji Lowry MD 04/15/2018 7:41 PM EDT
[2018-04-15 19:46] LABS: Albumin 3.3 g/dL (3.4-5.0); Anion Gap 7 meq/L (5-15); Blood Urea Nitrogen 10 mg/dL (7-18); Calcium 8.2 mg/dL (8.5-10.1); Glucose,Random 95 mg/dL (74-106)
[2018-04-15 19:47] LABS: Activated Partial Thrombo Time 25.2 sec (24.3-30.1); INR 0.9 Ratio; Prothrombin Time 9.5 sec (9.8-11.6)
[2018-04-15 19:49] LABS: Alanine Aminotransferase 23 U/L (10-53); Aspartate Aminotransferase 17 U/L (15-37); Glomerular Filtration Rate 56 mL/min (>89)
[2018-04-15 19:51] LABS: Total Protein 7.2 g/dL (6.4-8.2)
[2018-04-15 19:52] LABS: Alkaline Phosphatase 99 U/L (45-117); Creatine Kinase 165 U/L (26-192)
[2018-04-15 20:04] LABS: Creatine Kinase MB 1.6 ng/mL (0.5-3.6)
[2018-04-15] MEDS ORDERED: Bisacodyl 10 MG Supp RECTAL PRN (20:18)
[2018-04-15] MEDS ORDERED: Acetaminophen 325 MG Tablet PO PRN (20:18)
[2018-04-15 20:47] VITALS: RESP 20
[2018-04-15] MEDS: Sod Chloride 0.9% Inj 1,000 ML IV.CONT SCH (23:12)
[2018-04-16] MEDS: Temazepam 15 MG Capsule PO PRN (00:28)
[2018-04-16] MEDS: Levothyroxine 75 MCG Tablet PO SCH (06:04)
[2018-04-16 08:17] LABS: Baso # (Auto) 0.2 th/mm3 (0.0-0.2); Baso % (Auto) 2.9 % (0.0-2.0); Eos # (Auto) 0.2 th/mm3 (0.0-0.4); Eos % (Auto) 2.3 % (0.0-4.0); Hematocrit 33.5 % (35.0-46.0); Hemoglobin 11.3 gm/dL (11.6-15.3); Lymph # (Auto) 5.3 th/mm3 (1.0-4.8); Lymph % (Auto) 63.6 % (9.0-44.0); Mean Corpuscular HGB Conc 33.8 % (32.0-36.0); Mean Corpuscular Hemoglobin 29.5 pg (27.0-34.0); Mean Corpuscular Volume 87.3 fL (80.0-100.0); Mono # (Auto) 0.3 th/mm3 (0.0-0.9); Mono % (Auto) 4.2 % (0.0-8.0); Neut # (Auto) 2.2 th/mm3 (1.8-7.7); Platelet Count 187 th/mm3 (150-450); Red Blood Count 3.84 mil/mm3 (4.00-5.30); Red Cell Distribution Width 15.4 % (11.6-17.2); White Blood Count 8.2 th/mm3 (4.0-11.0)
[2018-04-16] MEDS: Topiramate 25 MG Tablet PO SCH ×3 (08:29→21:37)
[2018-04-16] MEDS: Sod Chloride 0.9% Inj 1,000 ML IV.CONT SCH ×2 (08:29→17:22)
[2018-04-16] MEDS: Senna/Docusate Sodium 8.6/50 MG Tablet PO SCH ×3 (08:29→21:38)
[2018-04-16] MEDS: Pantoprazole Sodium 20 MG DR Tablet PO SCH (08:29)
[2018-04-16 08:38] LABS: Chloride 109 meq/L (98-107); Potassium 3.6 meq/L (3.5-5.1); Sodium 142 meq/L (136-145)
[2018-04-16 08:40] LABS: Calcium 8.2 mg/dL (8.5-10.1)
[2018-04-16 08:41] LABS: Albumin 3.2 g/dL (3.4-5.0); Anion Gap 8 meq/L (5-15); Blood Urea Nitrogen 11 mg/dL (7-18); Carbon Dioxide 25.3 meq/L (21.0-32.0); Glucose,Random 83 mg/dL (74-106)
[2018-04-16 08:44] LABS: Alanine Aminotransferase 23 U/L (10-53); Aspartate Aminotransferase 18 U/L (15-37); Glomerular Filtration Rate 69 mL/min (>89)
[2018-04-16 08:46] LABS: Total Protein 7.1 g/dL (6.4-8.2)
[2018-04-16 08:47] LABS: Alkaline Phosphatase 78 U/L (45-117)
[2018-04-16] MEDS: Divalproex 250 MG DR Tablet PO SCH ×3 (09:20→17:23)
--- NOTE | 2018-04-16 09:36 | P.HPIM ---
History of Present Illness Service: [facility] Primary Care Physician: Loy Prieto MD Chief Complaint: Dizziness History of Present Illness: 57-year-old female with a medical history significant for TIA, hypertension, hyperlipidemia, hypothyroidism, migraine who presented to the emergency room complaining of dizziness and some difficulty with her speech. Patient reports she has had dizziness or vertigo in the past but felt different this time. She also report some difficulty with her speech. She also complained of double vision at the time. All of her symptoms have since resolved. Currently she has no focal deficits. She denies any weakness. Patient admits to having an increased amount of stress due to illness in her family - Diagnosis (1) Transient ischemic attack (TIA) (2) HTN (hypertension) (3) Hypothyroid (4) Migraine Review of Systems All other systems reviewed negative except as stated in HPI [facility] - History History Provided By: Patient - Medical History Medical History: Medical History (Last Updated 04/16/18 @ 14:50 by Lucho Avitia MD) Cervical vertebral fusion GERD (gastroesophageal reflux disease) High cholesterol Hypertension Leg pain Migraines TIA (transient ischemic attack) Thyroid disease - Surgical History Surgical History: Surgical History (Last Reviewed 04/16/18 @ 14:59 by Lucho Avitia MD) H/O: section - Family History Family History: Family History (Last Reviewed 04/16/18 @ 14:59 by Lucho Avitia MD) Mother Family history of stroke - Tobacco History Second Hand Smoke Exposure: No Tobacco Use In Past 30 Days: No Smoking Status: Never smoker - Alcohol History How Often Do You Have a Drink Containing Alcohol: Monthly or less - Substance Use History Substance History: No History of Abuse - Travel History Recent Travel in the [facility] Within the Last 8 Weeks: No Recent Travel Out of the Country Within the Last 8 Weeks: No - Immunization History Tetanus Immunization: Unsure Hx Influenza Vaccine This Season: No Medications and Allergies Active Medications: Active Medications Acetaminophen (Tylenol) 650 mg PO Q4H PRN PRN Reason: Temp > 100.4 Al Hydroxide/Mg Hydroxide (Milk Of Magnesia Liq) 30 ml PO Q12H PRN PRN Reason: Mild Constipation Aspirin (Ecotrin) 325 mg PO DAILY [facility] Last Admin: 04/16/18 08:29 Dose: 325 mg Atorvastatin Calcium (Lipitor) 80 mg PO DAILY [facility] Last Admin: 04/16/18 08:29 Dose: 80 mg Bisacodyl (Dulcolax Supp) 10 mg RECTAL DAILY PRN PRN Reason: SEVERE CONSITIPATION Divalproex Sodium (Depakote Dr) 250 mg PO TID [facility] Last Admin: 04/16/18 09:20 Dose: 250 mg Sodium Chloride (Ns Inj) 1,000 mls @ 100 mls/hr IV.CONT .Q10H [facility] Last Admin: 04/16/18 08:29 Dose: Not Given Lactulose (Lactulose Liq) 30 ml PO DAILY PRN PRN Reason: SEVERE CONSITIPATION Levothyroxine Sodium (Synthroid) 75 mcg PO DAILY@0600 [facility] Last Admin: 04/16/18 06:04 Dose: 75 mcg Ondansetron HCl (Zofran Inj) 4 mg IV.PUSH Q6H PRN PRN Reason: NAUSEA OR VOMITING Pantoprazole Sodium (Protonix) 20 mg PO DAILY [facility] Last Admin: 04/16/18 08:29 Dose: 20 mg Pregabalin (Lyrica) 200 mg PO TID [facility] Last Admin: 04/16/18 08:29 Dose: 200 mg Senna/Docusate Sodium (Adenike-Colace) 1 tab PO BID [facility] Last Admin: 04/16/18 08:29 Dose: 1 tab Sennosides (Senokot) 17.2 mg PO Q12H PRN PRN Reason: Moderate Constipation Sodium Chloride (Ns Flush) 2 ml IV.FLUSH PRN PRN PRN Reason: FLUSH AFTER USING IV ACCESS Temazepam (Restoril) 15 mg PO HS PRN PRN Reason: INSOMNIA Last Admin: 04/16/18 00:28 Dose: 15 mg Topiramate (Topamax) 50 mg PO BID [facility] Last Admin: 04/16/18 08:29 Dose: 50 mg Allergies Allergy/AdvReac Type Severity Reaction Status Date / Time Sulfa (Sulfonamide Allergy Severe Hives Verified 04/15/18 18:32 Antibiotics) lisinopril Allergy Edema, Verified 04/15/18 19:01 Localized codeine AdvReac Intermediate NAUSEA Verified 04/15/18 18:32 meperidine [From Demerol] AdvReac Intermediate Dizziness Verified 04/15/18 18:33 ciprofloxacin AdvReac Unknown UNKNOWN Verified 04/15/18 18:32 hydrocodone AdvReac Nausea Verified 04/15/18 18:33 Home Medications Medication Instructions Recorded Confirmed Type aspirin 81 mg PO DAILY 04/15/18 04/15/18 History atorvastatin 80 mg PO DAILY 04/15/18 04/15/18 History clonidine HCl 0.1 mg PO TID 04/15/18 04/15/18 History divalproex [Depakote] 250 mg PO TID 04/15/18 04/15/18 History furosemide 20 mg PO DAILY 04/15/18 04/15/18 History levothyroxine 75 mcg PO DAILY 04/15/18 04/15/18 History losartan 50 mg PO DAILY 04/15/18 04/15/18 History metoprolol tartrate 25 mg PO BID 04/15/18 04/15/18 History omeprazole 20 mg PO DAILY 04/15/18 04/15/18 History pregabalin [Lyrica] 200 mg PO TID 04/15/18 04/15/18 History tizanidine [Zanaflex] 4 mg PO TID 04/15/18 04/15/18 History topiramate [Topamax] 50 mg PO BID 04/15/18 04/15/18 History tramadol [Ultram] 50 mg PO QID PRN 04/15/18 04/15/18 History Exam Vital signs: Vital Signs 04/15/18 18:21 04/15/18 19:30 04/15/18 20:00 Temperature 97.8 F Pulse Rate 71 70 58 L Respiratory Rate 16 20 Blood Pressure 144/82 H 135/80 Pulse Oximetry 97 97 04/15/18 20:15 04/15/18 21:06 04/15/18 22:00 Temperature Pulse Rate 62 58 L Respiratory Rate 20 Blood Pressure 138/74 Pulse Oximetry 99 100 04/15/18 22:03 04/15/18 22:25 04/16/18 00:00 Temperature 98.2 F 96.9 F L Pulse Rate 62 51 L 57 L Respiratory Rate 20 20 20 Blood Pressure 142/74 H 159/75 H 150/74 H Pulse Oximetry 100 100 04/16/18 04:00 04/16/18 07:22 04/16/18 08:00 Temperature 97.4 F L 97.9 F Pulse Rate 68 73 Respiratory Rate 20 20 Blood Pressure 142/87 H 170/79 H Pulse Oximetry 97 95 98 Intake & Output 04/15/18 04/16/18 04/16/18 18:59 06:59 18:59 Intake Total 0 / 0 Balance 0 / 0 Weight 124.7 kg 124.9 kg Intake: Oral 0 / 0 Other: # Voids 1 Narrative: GENERAL: This is a well-nourished, well-developed patient, in no apparent distress. CARDIOVASCULAR: Normal rate and regular rhythm without murmurs, gallops, or rubs. RESPIRATORY: Good respiratory efforts. Breath sounds equal and clear to auscultation bilaterally. GASTROINTESTINAL: Abdomen soft, non-tender, non-distended. Normal active bowel sounds MUSCULOSKELETAL: Extremities without cyanosis, or edema. NEURO: Alert & Oriented x4 to person, place, time, situation. Moves all ext x4 PSYCH: Appropriate mood and affect. Results - Labs CBC & Chem 7: 04/16/18 05:50 04/16/18 05:50 Labs: Short CBC 04/15/18 04/16/18 Range/Units 19:20 05:50 WBC 8.7 8.2 (4.0-11.0) th/mm3 Hgb 12.1 11.3 L (11.6-15.3) gm/dL Hct 36.8 33.5 L (35.0-46.0) % Plt Count 200 187 (150-450) th/mm3 BMP 04/15/18 04/16/18 19:20 05:50 Sodium 142 142 Potassium 3.6 3.6 Chloride 109 H 109 H Carbon Dioxide 26.0 25.3 BUN 10 11 Creatinine 1.20 H 1.00 Calcium 8.2 L 8.2 L Cardiac Enzymes 04/15/18 Range/Units 19:20 Total Creatine Kinase 165 (26-192) U/L CK-MB (CK-2) 1.6 (0.5-3.6) ng/mL Troponin I Less than 0.02 L (0.02-0.05) ng/mL Liver Function 04/15/18 04/16/18 Range/Units 19:20 05:50 Total Bilirubin 0.1 L 0.3 (0.2-1.0) mg/dL AST 17 18 (15-37) U/L ALT 23 23 (10-53) U/L Alkaline Phosphatase 99 78 (45-117) U/L Albumin 3.3 L 3.2 L (3.4-5.0) g/dL - Imaging Impressions Head CT 04/15/18 18:50 CONCLUSION: 1. No acute intracranial abnormalities. . Caprini VTE Risk Assessment Caprini VTE Risk Assessment: No/Low Risk (score <= 1) Caprini Risk Assessment Model: Point Value = 1 Point Value = 2 Point Value = 3 Point Value = 5 Age 41-60 Minor surgery BMI > 25 kg/m2 Swollen legs Varicose veins or History of unexplained or recurrent spontaneous Oral contraceptives or hormone replacement Sepsis (< 1 month) Serious lung disease, including pneumonia (< 1 month) Abnormal pulmonary function Acute myocardial infarction Congestive heart failure (< 1 month) History of inflammatory bowel disease Medical patient at bed rest Age 61-74 Arthroscopic surgery Major open surgery (> 45 min) Laparoscopic surgery (> 45 min) Malignancy Confined to bed (> 72 hours) Immobilizing plaster cast Central venous access Age >= 75 History of VTE Family history of VTE Factor V Leiden Prothrombin [id number] Lupus anticoagulant Anticardiolipin antibodies Elevated serum homocysteine Heparin-induced thrombocytopenia Other congenital or acquired thrombophilia Stroke (< 1 month) Elective arthroplasty Hip, pelvis, or leg fracture Acute spinal cord injury (< 1 month) Prophylaxis Regimen: Total Risk Factor Score Risk Level Prophylaxis Regimen 0-1 Low Early ambulation 2 Moderate Order ONE of the following: *Sequential Compression Device (SCD) *Heparin 5000 units SQ BID 3-4 Higher Order ONE of the following medications: *Heparin 5000 units SQ TID *Enoxaparin/Lovenox 40 mg SQ daily (WT < 150 kg, CrCl > 30 mL/min) *Enoxaparin/Lovenox 30 mg SQ daily (WT < 150 kg, CrCl > 10-29 mL/min) *Enoxaparin/Lovenox 30 mg SQ BID (WT < 150 kg, CrCl > 30 mL/min) AND/OR *Sequential Compression Device (SCD) 5 or more Highest Order ONE of the following medications: *Heparin 5000 units SQ TID (Preferred with Epidurals) *Enoxaparin/Lovenox 40 mg SQ daily (WT < 150 kg, CrCl > 30 mL/min) *Enoxaparin/Lovenox 30 mg SQ daily (WT < 150 kg, CrCl > 10-29 mL/min) *Enoxaparin/Lovenox 30 mg SQ BID (WT < 150 kg, CrCl > 30 mL/min) AND *Sequential Compression Device (SCD) Assessment and Plan - Assessment (1) Transient ischemic attack (TIA) Code(s): G45.9 - Transient cerebral ischemic attack, unspecified Status: Acute Plan: Probable TIA. Symptoms resolved. Continue workup with MRI, MRA, carotid ultrasound and 2D echocardiogram. Monitor on telemetry. Appreciate neurology input. Aspirin 325 mg daily. (2) HTN (hypertension) Code(s): I10 - Essential (primary) hypertension Status: Acute Plan: Continue home dose antihypertensives. Currently not well controlled. She is on clonidine. Will resume home dose medications. Advised her to work with her PCP regarding switching over to something other than clonidine as this can cause rebound hypertension if not taken regularly as ordered. (3) Hypothyroid Code(s): E03.9 - Hypothyroidism, unspecified Status: Acute (4) Migraine Code(s): G43.909 - Migraine, unspecified, not intractable, without status migrainosus Status: Acute Plan: Continue home medications - Plan Discharge Planning: Continue workup for TIA, plan to DC once workup is completed. H&P: Quality - VTE Deep Vein Thrombosis/Pulmonary Embolism Present on Admission: Yes (1) Transient ischemic attack (TIA) Qualifiers: Transient cerebral ischemia type: unspecified Qualified Code(s): G45.9 - Transient cerebral ischemic attack, unspecified
--- NOTE | 2018-04-16 10:10 | MB ---
cc: Lauren Case MD DATE: 04/16/2018 REASON FOR CONSULTATION: Dizziness, possible TIA. HISTORY OF PRESENT ILLNESS: The patient is a pleasant 57-year-old woman who is a patient of Dr. Rivera, comes in with dizziness that started yesterday with position and without position, feeling also her vision was not normal. If she was looking at something, it was somewhat doubled but not [id number] up and down. For example, if she looked at a crease in the wall, it was not a straight line. It was a little offset. Without a headache. She states that this happened in the past as well. However, it does not resolve if she closes one eye. She has been under a lot of stress with her mother who recently had a stroke, and they have been either sleeping at the hospital or at the rehab center as well as with her having cancer and needing to go with him to his appointments. She also has an endoscopy next week. She states she has had a TIA, possible stroke back in November, had an MRI with Dr. Rivera but cannot recall the findings. At that time, she had some right upper extremity weakness that resolved and possible slurred speech. She does not complain of any weakness on today's visit. The vision is questionable. She has had some pain behind her left eye, some questionable short-term memory issues. She does have a history of hypertension and hyperlipidemia as well as cervical spine fusion a number of years ago. She also has hyperlipidemia, hypertension, migraines, thyroid disease. SOCIAL HISTORY: , does not smoke or drink. HOME MEDICINES: Please refer to MAR, but she does take Depakote 250 mg t.i.d., Lipitor. She takes aspirin, Synthroid, Lyrica 200 mg 3 times a day. PHYSICAL EXAMINATION: VITAL SIGNS: Her temperature is 97.9, pulse 72, respiratory rate 20, blood pressure 170/79, saturating at 98% on room air. NECK: Supple. No appreciable bruits. HEART: Regular. NEUROLOGIC: She is awake, She is alert. She is oriented. She is fluent. Her pupils are reactive. Her extraocular muscles are normal. I do not see any ptosis. She does not exhibit any significant diplopia. On exam, visual linda are full. Her face is symmetrical. Her tongue is midline. Motor blas, there is no obvious weakness. No leg lag or drift in the upper extremities. Reflexes are trace. Cerebellar normal. Gait deferred. We will defer to PT. LABORATORY DATA: Reviewed. Her GFR today is 69, calcium 8.2. Albumin 3.2. Lipid panel, B12 pending. Her TSH is 1.090. Coag panel: PT 9.5. The rest is unremarkable. CBC: White count 8.2, hemoglobin 11.3, platelets 187,000. Sedimentation rate is pending as are her B12 and hemoglobin A1c. As far as imaging of the head, she had a CT that did not show anything acute. IMPRESSION: This is a 57-year-old woman with a history of dizziness, questionable transient ischemic attack, possible diplopia. Of note, she does state she has some pain at times behind her left eye. Would recommend obtaining a transient ischemic attack workup, MRI brain, [place], MRA, carotid ultrasound, echo. Labs are pending. Maintain her on full dose aspirin for the interim. I did discuss with her that she should see an shoe dresser to have her eyes dilated and check the pressures as she sometimes has pain behind the left eye. Also, she will need a followup with Dr. Rivera. She does have chronic cervicogenic pain. It may be a culprit to some of her symptoms that go into the left arm. At some point in time, she should have a followup scan of her cervical spine. Get her out of bed with physical therapy. Lipids are pending. Depending on the lipid panel, she may need to have change in her Lipitor. She is also on topiramate as a headache preventative currently as well as Depakote. Outpatient Holter monitor should be considered and workup ongoing. Further recommendations will be made accordingly as needed. MD MARYBEL Walker/lizy , 09:38 AM , 09:49 AM
[2018-04-16 10:17] LABS: Eosinophils 1 % (0-4); Lymphocytes 76 % (9-44)
[2018-04-16 10:18] LABS: Burr Cells 1+; Ovalocytes 1+; Platelet Estimate Normal (Normal); Platelet Morphology Normal (Normal)
[2018-04-16] MEDS: Furosemide 20 MG Tablet PO SCH (12:06)
--- NOTE | 2018-04-16 12:49 | MR ---
EXAM DATE: 04/16/2018 12:44 PM EDT AGE/SEX: 57 years / Female INDICATIONS: Dizziness. CLINICAL DATA: This is the patient's initial encounter. Patient reports that signs and symptoms have been present for 1 week and indicates a pain score of 3/10. MEDICAL/SURGICAL HISTORY: Hypertension. Hypercholesterolemia. Fusion, cervical. sect ion. COMPARISON: [facility], MR HEAD W/O CONTRAST, 04/16/2018. [facility], CT HEAD W/O CONTRAST, 04/15/2018. . TECHNIQUE: 3D [id number] MRA was performed. Source images, multiplanar STS MIP, and 3D volum e MIP reconstructions were reviewed. FINDINGS: There is excellent visualization of the major intracranial arteries out to the second-order branch ve ssels. There is no evidence for aneurysm, vessel truncation or stenosis, and no evidence for vascula r malformation. CONCLUSION: 1. Negative MRA Cow ([place]) non contrast. Electronically signed by: Kyara Renee MD 04/16/2018 12:48 PM EDT
--- NOTE | 2018-04-16 12:50 | MR ---
EXAM DATE: 04/16/2018 12:44 PM EDT AGE/SEX: 57 years / Female INDICATIONS: Dizziness. CLINICAL DATA: This is the patient's initial encounter. Patient reports that signs and symptoms have been present for 1 day and indicates a pain score of 3/10. MEDICAL/SURGICAL HISTORY: Hypertension. Hypercholesterolemia. Fusion, cervical. sect ion. COMPARISON: [facility], MRA HEAD W/O CONTRAST, 04/16/2018. [facility], CT HEAD W/O CONTRAST, 04/15/2018. . TECHNIQUE: Multiplanar, multisequence examination of the brain was performed without contrast. FINDINGS: Cerebrum: The ventricles are normal for age. No evidence of midline shift, mass lesion, hemorrhage or acute infarction. No extraaxial fluid collections are seen. The pituitary gland and suprasellar cistern are normal in configuration. White Matter: No significant signal abnormalities are seen in the white matter. Posterior Fossa: The cerebellum and brainstem are intact. The 4th ventricle is midline. The cerebel lopontine angle is unremarkable. The cerebellar tonsils are normal in position. Diffusion Imaging: No focal areas of restricted diffusion are seen. No evidence of acute infarction . Extracranial: The visualized portions of the orbits and paranasal sinuses are unremarkable. CONCLUSION: 1. Negative MR Brain non contrast. Electronically signed by: Kyara Renee MD 04/16/2018 12:48 PM EDT
--- NOTE | 2018-04-16 13:36 | ECHRPT ---
Indication: CVA/TIA CONCLUSIONS The left ventricular systolic function is normal with an estimated ejection fraction in the range of 55-60%. Wall thickness is normal. Normal left ventricular size. BP: / HR: Rhythm: Sinus MEASUREMENTS (Male / Female) Normal Values Technical Quality:Fair 2D ECHO LV Diastolic Diameter PLAX 4.3 cm 4.2 - 5.9 / 3.9 - 5.3 cm LV Systolic Diameter PLAX 3.3 cm IVS Diastolic Thickness 0.9 cm 0.6 - 1.0 / 0.6 - 0.9 cm LVPW Diastolic Thickness 0.9 cm 0.6 - 1.0 / 0.6 - 0.9 cm LV Relative Wall Thickness 0.4 LVOT Diameter 1.7 cm M-MODE Aortic Root Diameter MM 2.8 cm LA Systolic Diameter MM 2.5 cm LA Ao Ratio MM 0.9 AV Cusp Separation MM 1.9 cm DOPPLER AV Peak Velocity 133.0 cm/s AV Peak Gradient 7.1 mmHg LVOT Peak Velocity 97.2 cm/s LVOT Peak Gradient 3.8 mmHg AV Area Cont Eq pk 1.7 cm Mitral E Point Velocity 91.3 cm/s Mitral A Point Velocity 83.9 cm/s Mitral E to A Ratio 1.1 LV E' Lateral Velocity 7.2 cm/s Mitral E to LV E' Lateral Ratio 12.7 LV E' Septal Velocity 8.0 cm/s Mitral E to LV E' Septal Ratio 11.4 PV Peak Velocity 70.6 cm/s PV Peak Gradient 2.0 mmHg FINDINGS LEFT VENTRICLE The left ventricular systolic function is normal with an estimated ejection fraction in the range of 55-60%. Wall thickness is normal. Normal left ventricular size. RIGHT VENTRICLE Normal right ventricular size and systolic function. LEFT ATRIUM The left atrial size is normal. RIGHT ATRIUM The right atrial size is normal. ATRIAL SEPTUM Normal atrial septal thickness without atrial level shunting by limited color doppler interrogation. AORTA The aortic root and proximal ascending aorta are normal in size on limited imaging. MITRAL VALVE Structurally normal mitral valve. No mitral valve stenosis or regurgitation. AORTIC VALVE Trileaflet aortic valve. No aortic valve stenosis or regurgitation. TRICUSPID VALVE Structurally normal tricuspid valve. No tricuspid valve stenosis or regurgitation. PULMONARY VALVE The pulmonary valve is not well visualized. VESSELS The inferior vena cava is normal in size. PERICARDIUM No pericardial effusion. Juan Contreras MD, FACC, FSCAI (Electronically Signed) Final Date:16 April 2018 13:34
--- NOTE | 2018-04-16 14:02 | ECG ---
Date Performed: 04/15/2018 Time Performed: 19:11:29 PTAGE: 57 years EKG: Sinus rhythm MODERATE VOLTAGE CRITERIA FOR LVH, CONSIDER NORMAL VARIANT INFERIOR MYOCARDIAL INFARCTION ABNORMAL E CG Since the PREVIOUS TRACING , no significant change noted PREVIOUS TRACIN12/31/2016 19.51 DOCTOR: Radha Longoria Interpretating Date/Time 04/16/2018 14:01:54
[2018-04-16 14:08] LABS: Cholesterol 149 mg/dL (120-200)
[2018-04-16 14:33] LABS: Chol/HDL Ratio 2.63 Ratio; HDL Cholesterol 56.5 mg/dL (40.0-60.0); LDL Cholesterol,Calculated 66 mg/dL (0-99); Triglycerides 132 mg/dL (42-150); Vitamin B12 491 pg/mL (193-986)
--- NOTE | 2018-04-16 15:17 | US ---
EXAM DATE: 04/16/2018 3:05 PM EDT AGE/SEX: 57 years / Female INDICATIONS: Syncope. CLINICAL DATA: This is the patient's initial encounter. Patient reports that signs and symptoms have been present for 1 week and indicates a pain score of 0/10. MEDICAL/SURGICAL HISTORY: Gastroesophageal reflux disease. Hypercholesterolemia. Hypertension . Migraines. Thyroid disease. Transient ischemic attack. section. Cervical vertebral fusi on. COMPARISON: No prior exams available for comparison. VELOCITY PARAMETERS: ICA/CCA Ratio: Right 1.2 , Left 1.8 ICA: Right 100 cm/sec, Left 105 cm/sec CCA: Right 86 cm/sec, Left 60 cm/sec ECA: Right 80 cm/sec, Left 47 cm/sec Vertebral: Right 55 cm/sec antegrade, Left 63 cm/sec antegrade FINDINGS: Right Carotid: No significant plaque is visualized.The waveforms are within normal limits. Left Carotid: No significant plaque is visualized. The waveforms are within normal limits. Other: None. CONCLUSION: 1. Right Internal Carotid Artery: Negative for hemodynamically significant stenosis. 2. Left Internal Carotid Artery: Negative for hemodynamically significant stenosis. 3. Exam within normal limits for age. No significant plaque formation. Electronically signed by: Saji Lowry MD 04/16/2018 3:16 PM EDT
[2018-04-16 16:39] LABS: Bilirubin,Urine Negative (Negative); Clarity,Urine Clear (Clear); Glucose,Urine (UA) Negative (Negative); Leukocyte Esterase,Urine Negative (Negative); Nitrite,Urine Negative (Negative); Specific Gravity,Urine Less/Equal 1.005 (1.002-1.035); Urobilinogen,Urine 0.2 mg/dL (Less than 2)
[2018-04-16 17:10] LABS: Color,Urine Straw (Yellw/Straw)
[2018-04-16 17:24] LABS: Squamous Epithelial Cell,Urine 0-5 /hpf (0-5); WBC,Urine 0-5 /hpf (0-5)
[2018-04-17] MEDS: Temazepam 15 MG Capsule PO PRN (00:20)
[2018-04-17] MEDS: Sod Chloride 0.9% Inj 1,000 ML IV.CONT SCH (02:56)
[2018-04-17] MEDS: Levothyroxine 75 MCG Tablet PO SCH (05:21)
--- NOTE | 2018-04-17 08:45 | P.PNIM ---
Subjective Interval history: Patient reports she is feeling well today. No neurological symptoms. Back at baseline. We discussed the imaging findings. Her workup is completely negative. Physical Exam Vital signs: Vital Signs 04/16/18 11:05 04/16/18 15:04 04/16/18 16:00 Temperature 97.7 F 97.4 F L Pulse Rate 59 L 71 Respiratory Rate 20 20 Blood Pressure 184/100 H 186/79 H 165/88 H Pulse Oximetry 98 97 04/16/18 19:45 04/16/18 20:00 04/17/18 00:00 Temperature 97.4 F L 98.1 F Pulse Rate 74 66 Respiratory Rate 20 20 Blood Pressure 149/74 H 187/81 H Pulse Oximetry 99 100 98 04/17/18 04:00 04/17/18 06:33 04/17/18 07:26 Temperature 97.4 F L 97 F L Pulse Rate 69 61 Respiratory Rate 20 20 Blood Pressure 170/104 H 129/64 157/71 H Pulse Oximetry 96 95 04/17/18 07:36 Temperature Pulse Rate Respiratory Rate Blood Pressure Pulse Oximetry 96 Intake & Output 04/16/18 04/17/18 04/17/18 18:59 06:59 18:59 Intake Total 920 / 920 1380 / 1380 Balance 920 / 920 1380 / 1380 Weight 124.8 kg Intake: IV 900 / 900 NS Inj 1,000 ML @ 100 mls/hr IV 900 / 900 .CONT .Q10H JP Rx#:[id number] Oral 920 / 920 480 / 480 Other: # Voids 4 2 # Bowel Movements 2 Narrative: GENERAL: This is a well-nourished, well-developed patient, in no apparent distress. CARDIOVASCULAR: Normal rate and regular rhythm without murmurs, gallops, or rubs. RESPIRATORY: Good respiratory efforts. Breath sounds equal and clear to auscultation bilaterally. GASTROINTESTINAL: Abdomen soft, non-tender, non-distended. Normal active bowel sounds MUSCULOSKELETAL: Extremities without cyanosis, or edema. NEURO: Alert & Oriented x4 to person, place, time, situation. Moves all ext x4 PSYCH: Appropriate mood and affect. Results - Labs CBC & Chem 7: 04/16/18 05:50 04/16/18 05:50 Laboratory Results - last 24 hr 04/16/18 04/16/18 04/16/18 05:50 05:50 05:50 WBC Differential Manual diff final Seg Neuts % (Manual) 23 Lymphocytes % (Manual) 76 H Eosinophils % (Manual) 1 Abs Neuts (Manual) 1.9 Platelet Estimate Normal Platelet Morphology Normal Ovalocytes 1+ H Alan Cells 1+ H ESR Total Bilirubin 0.3 Alkaline Phosphatase 78 Total Protein 7.1 Triglycerides 132 Cholesterol 149 LDL Cholesterol, Calc 66 HDL Cholesterol 56.5 Cholesterol/HDL Ratio 2.63 Vitamin B12 491 Folate Greater than 20.0 H TSH 1.090 Ur Collection Type Urine Color Urine Clarity Urine pH Ur Specific [place] Urine Protein Urine Glucose (UA) Urine Ketones Urine Occult Blood Urine Nitrate Urine Bilirubin Urine Urobilinogen Ur Leukocyte Esterase Urine WBC Ur Squamous Epith Cells Micro UA Comment Urine Culture Comments 04/16/18 04/16/18 05:50 16:10 WBC Differential Seg Neuts % (Manual) Lymphocytes % (Manual) Eosinophils % (Manual) Abs Neuts (Manual) Platelet Estimate Platelet Morphology Ovalocytes Alan Cells ESR 47 H Total Bilirubin Alkaline Phosphatase Total Protein Triglycerides Cholesterol LDL Cholesterol, Calc HDL Cholesterol Cholesterol/HDL Ratio Vitamin B12 Folate TSH Ur Collection Type Clean catch Urine Color Straw Urine Clarity Clear Urine pH 6.0 Ur Specific [place] Less/equal 1.005 Urine Protein Negative Urine Glucose (UA) Negative Urine Ketones Negative Urine Occult Blood Negative Urine Nitrate Negative Urine Bilirubin Negative Urine Urobilinogen 0.2 Ur Leukocyte Esterase Negative Urine WBC 0-5 Ur Squamous Epith Cells 0-5 Micro UA Comment Culture not ind Urine Culture Comments Culture not ind - Imaging Impressions Carotid Doppler Study 04/16/18 00:00 CONCLUSION: 1. Right Internal Carotid Artery: Negative for hemodynamically significant stenosis. 2. Left Internal Carotid Artery: Negative for hemodynamically significant stenosis. 3. Exam within normal limits for age. No significant plaque formation. Head MRI 04/16/18 06:58 CONCLUSION: 1. Negative MR Brain non contrast. Head MRA 04/16/18 06:58 CONCLUSION: 1. Negative MRA [place] ([place]) non contrast. Assessment and Plan - Assessment (1) Transient ischemic attack (TIA) Code(s): G45.9 - Transient cerebral ischemic attack, unspecified Status: Acute Plan: Probable TIA. Symptoms resolved. Continue workup with MRI, MRA, carotid ultrasound and 2D echocardiogram. Monitor on telemetry. Appreciate neurology input. Aspirin 325 mg daily. (2) HTN (hypertension) Code(s): I10 - Essential (primary) hypertension Status: Acute Plan: Continue home dose antihypertensives. Currently not well controlled. She is on clonidine. Will resume home dose medications. Advised her to work with her PCP regarding switching over to something other than clonidine as this can cause rebound hypertension if not taken regularly as ordered. (3) Hypothyroid Code(s): E03.9 - Hypothyroidism, unspecified Status: Acute (4) Migraine Code(s): G43.909 - Migraine, unspecified, not intractable, without status migrainosus Status: Acute Plan: Continue home medications - Plan 57-year-old female admitted and treated for the following: (1) Transient ischemic attack (TIA) Code(s): G45.9 - Transient cerebral ischemic attack, unspecified Status: Acute Plan: Probable TIA. Symptoms completely resolved. Workup is negative including MRI, MRA, carotid ultrasound and 2D echocardiogram. Patient was seen by neurology. Aspirin dose increased to 325 mg daily. (2) HTN (hypertension) Code(s): I10 - Essential (primary) hypertension Status: Acute Plan: Continue home dose antihypertensives. Initially not well controlled. She is on clonidine. Home dose continued. Advised her to work with her PCP regarding switching over to something other than clonidine as this can cause rebound hypertension if not taken regularly as ordered. (3) Hypothyroid Code(s): E03.9 - Hypothyroidism, unspecified Status: Acute (4) Migraine Code(s): G43.909 - Migraine, unspecified, not intractable, without status migrainosus Status: Acute Plan: Continue home medications Discharge Planning: Discharge patient to home Condition on discharge: Improved Regular Diet as tolerated Ad Evangelina activity Rx written: Per med rec Follow-up with primary care physician (1) Transient ischemic attack (TIA) Qualifiers: Transient cerebral ischemia type: unspecified Qualified Code(s): G45.9 - Transient cerebral ischemic attack, unspecified
[2018-04-17] MEDS: Divalproex 250 MG DR Tablet PO SCH (09:38)
[2018-04-17] MEDS: Furosemide 20 MG Tablet PO SCH (09:39)
[2018-04-17] MEDS: Senna/Docusate Sodium 8.6/50 MG Tablet PO SCH (09:39)
[2018-04-17] MEDS: Pantoprazole Sodium 20 MG DR Tablet PO SCH (09:39)
[2018-04-17] MEDS: Topiramate 25 MG Tablet PO SCH (09:39)
[2018-04-17 12:26] LABS: Hemoglobin A1c 6.3 % (4.3-6.0)
[2018-04-19 18:29] VITALS: BP 157/71; PULSE 61; TEMP 97; O2SAT 96
== END 2018-04-17 11:13 | disposition home or self-care (01) ==
LOC: PH3 18:18 → PHED 18:18 → PHEDA 18:18 → PH3 21:45
PROVIDERS: ADMIT Family Medicine; ATTEND Family Medicine
DX: I10 Essential (primary) hypertension; E78.5 Hyperlipidemia, unspecified; H53.2 Diplopia; G43.909 Migraine, unspecified, not intractable, without status migrainosus; Z98.1 Arthrodesis status; R47.9 Unspecified speech disturbances; Z86.73 Personal history of transient ischemic attack (TIA), and cerebral infarction without residual deficits; Z79.899 Other long term (current) drug therapy; E78.00 Pure hypercholesterolemia, unspecified; Z79.82 Long term (current) use of aspirin; R42 Dizziness and giddiness; E03.9 Hypothyroidism, unspecified; K21.9 Gastro-esophageal reflux disease without esophagitis